=== PATIENT | male | born 1970 | race Caucasian/White ===

== ENCOUNTER 2021-09-19 07:17 | Emergency (ER) | payer OTHER ==
[~2021-09-19] VITALS: Ht 177.8 cm; Wt 99.8 kg
[~2021-09-19 07:17] MED LIST: CARVEDILOL3.125 MG PO; LISINOPRIL10 MG PO; ZOLOFT50 MG PO
[2021-09-19] MEDS ORDERED: IBUPROFEN600 MG PO (07:21)
[2021-09-19] MEDS ORDERED: CEPHALEXIN500 MG PO (07:21)
[2021-09-19] MEDS ORDERED: BACTRIM DS TAB1 EACH PO (07:21)
[2021-09-19] MEDS ORDERED: TRIMETHOPRIM/SULFAMETHOXAZOLE 160-800 MG TAB PO ONE ×2 (07:30)
[2021-09-19] MEDS ORDERED: KETOROLAC TROMETHAMINE 60 MG/2 ML VIAL IM ONE ×2 (07:30)
[2021-09-19 07:42] VITALS: BP 164/91
== END 2021-09-19 08:46 | disposition home or self-care (01) ==
LOC: ER 07:20
DX: L03.032 Cellulitis of left toe (principal); I10 Essential (primary) hypertension; F32.A Depression, unspecified
CPT/HCPCS: 99283; J1885